=== PATIENT | male | born 1960 | race Caucasian/White ===

== ENCOUNTER → 2016-05-21 | Day surgery (SDC) | payer OTHER, MEDICARE ==
[~2016-05-21] MED LIST: AMLODIPINE BESYL5 MG PO; ATENOLOL PO; AVANZA PO; BENTYL20 M1 PO; CATAPRES0.1 MG PO; CELEXA20 MG PO; CIPRO PO; COREG12.5 MG PO; CYMBALTA30 MG PO; FLAGYL PO; HYDROCODONE-APA1 T54 PO; IMODIUM2 MG PO; KETOPROFEN PO; LIPITOR PO; LISINOPRIL PO; LOVASTATIN20 M2 PO; METHADONE PO; MIDRIN CAPSULE1 CAP PO; OXYCONTIN PO; PERCOCET5/325 PO; PHENERGAN25 MG PO; PRINIVIL40 MG PO; PROTONIX PO; PROZAC PO; VICODIN PO
--- NOTE | ~2016-05-21 | OR ---
Unit #: [id number] #: [id number] Patient: SUNSHINE MARTINEZ [id number] [address] [address] [id number] O MR#: [id number] NAME: SUNSHINE MARTINEZ. ROOM: Date of Procedure: 05/21/2016 Admission Date: 05/21/2016 Surgeon: Suresh Lan M.D. : 1960 Attending Physician: Suresh Lan M.D. Primary Care Physician: Radha Chen M.D. OPERATIVE REPORT PROCEDURE PERFORMED Colonoscopy to cecum. INDICATIONS FOR PROCEDURE Family history of colon cancer in father. MEDICATIONS Monitored anesthesia. POSTOP FINDINGS 1. Normal colon exam to cecum. 2. Good prep. 3. Internal hemorrhoids. 4. No polyps, masses, or colitis. PLAN Given the family history, recommend colonoscopy in 5 years. DESCRIPTION OF PROCEDURE The patient was explained of the procedure, risks, and benefits along with the risks and benefits of anesthesia. He was brought to the endoscopy room. Propofol anesthesia was given. Rectal exam was done, which was normal. Colonoscope was lubricated, passed up the rectum, advanced under direct vision all the way to the cecum. Cecum was identified by ileocecal valve and appendiceal orifice. I then started to pull the scope out carefully looking. No polyps, masses, or colitis were seen. Mucosa was normal and healthy. I retroflexed in the rectum, small hemorrhoids seen. Scope was gently pulled out. He tolerated it well. Dictated by... Félix Huynh/rosalio TD: 05/22/2016 09:02 JOB #: [id number] CC: Radha Chen M.D. Unit #: [id number] #: [id number] Patient: SUNSHINE MARTINEZ OPERATIVE REPORT Page 1 of 1 X Suresh Lan MD PROCEDURE OPERATIVE NOTE
== END | disposition home or self-care (01) ==
LOC: COPS 12:44
PROVIDERS: Internal Medicine
PROC: 0DJD8ZZ Inspection of Lower Intestinal Tract, Via Natural or Artificial Opening Endoscopic (ICD-10-PCS; principal; 2016-05-21 13:00)
DX: Z12.11 Encounter for screening for malignant neoplasm of colon (principal); Z80.0 Family history of malignant neoplasm of digestive organs; K64.8 Other hemorrhoids; K21.9 Gastro-esophageal reflux disease without esophagitis; I10 Essential (primary) hypertension; E66.9 Obesity, unspecified; Z68.39 Body mass index [BMI] 39.0-39.9, adult; Z79.899 Other long term (current) drug therapy; M54.9 Dorsalgia, unspecified; Z98.84 Bariatric surgery status; Z88.1 Allergy status to other antibiotic agents

== ENCOUNTER → 2016-08-16 | Outpatient (CLI) | payer OTHER, MEDICARE ==
--- NOTE | ~2016-08-16 | CT69 ---
[facility] A Service of [facility] RADIOLOGY TEXT RESULTS PATIENT: SUNSHINE MARTINEZ LOCATION: [facility] : 62 UNIT #: [id number] AGE: [address]: Radha Chen MD SEX: M ORDER DR: [id number] [address] [address] [id number] O MR#: [id number] Acc #: [id number] NAME: SUNSHINE MARTINEZ. : 1960 SEX: M STUDY DATE/TIME: 08/16/2016 14:45 UNIT: [facility]AT ROOM: STUDY DESCRIPTION: CT Head W Contrast Attending Physician: Radha Chen M.D. Referring Physician: Radha Chen M.D. Ordering Physician: Radha Chen M.D. Primary Care Physician: Radha Chen M.D. MEDICAL IMAGING REPORT This report is preliminary unless electronic signature is present EXAM Head CT with contrast, date of study 08/16/[address] head CT 10/20/2006 PROCEDURE Axial contrast-enhanced head CT. This CT exam was performed with one or more of the following radiation dose reduction techniques: Automatic exposure control, adjustment of mA and/or kV according to patient size, and iterative reconstruction. CLINICAL HISTORY Short-term memory loss for 6 months. FINDINGS There is no intracranial mass or abnormal enhancement. There is no hydrocephalus or extraaxial fluid collection. The extracranial soft tissues are unremarkable. 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 IMPRESSION Negative contrast-enhanced head CT. Dictated by... Jordan Morgan M.D. THIS IS AN ELECTRONICALLY VERIFIED REPORT Jordan Morgan M.D. at 08/17/2016 3:57 PM TEV/psc TD: 08/16/2016 23:29 [facility] A Service of [facility] RADIOLOGY TEXT RESULTS PATIENT: SUNSHIEN MARTINEZ LOCATION: [facility] : 62 UNIT #: [id number] AGE: [address]: Radah Chen MD SEX: M ORDER DR: JOB #: [id number] MEDICAL IMAGING REPORT Page 1 of 1 COPY
[2016-08-16 14:56] LABS: POC - CREATININE 0.87 mg/dL (0.64-1.27); POC - GFR >60.0 mL/min (>60)
== END | disposition home or self-care (01) ==
LOC: CCAT 13:32
PROVIDERS: Family Medicine
DX: R41.3 Other amnesia (principal)
CPT/HCPCS: 70460; 82565; Q9967